=== PATIENT | female | born 1970 | race Caucasian/White ===

== ENCOUNTER 2017-08-24 02:22 | Emergency (ER) | payer OTHER ==
[~2017-08-24] VITALS: Ht 167.6 cm; Wt 59.0 kg
--- NOTE | 2017-08-24 02:30 | NUR ---
To bed 4 a 47 yo female patient bb self and said, "i felt my heart racing." Per patient she woke with her heart racing, denies cp, no sob. AAOx4, nad noted. Breathing even and unlabored. Gowned. Placed cardiac and vs monitor. Comfort measures rendered.
--- NOTE | 2017-08-24 02:49 | NUR ---
Dr Bowie at bedside to eval.
[2017-08-24 03:35] VITALS: BP 123/75
--- NOTE | 2017-08-24 03:35 | NUR ---
Patient discharged to home in stable condition. Written and verbal after care instructions given. Patient verbalizes understanding of instruction. Patient is ambulatory with steady gait, no further complaints.
== END 2017-08-24 03:36 | disposition home or self-care (01) ==
LOC: ER 02:24
DX: F41.9 Anxiety disorder, unspecified (principal); L40.9 Psoriasis, unspecified; E03.9 Hypothyroidism, unspecified; F17.200 Nicotine dependence, unspecified, uncomplicated; Z85.71 Personal history of Hodgkin lymphoma
CPT/HCPCS: 99284; A4606; Z7610

== ENCOUNTER 2018-06-29 02:55 | Emergency (ER) | payer OTHER ==
[~2018-06-29] VITALS: Ht 170.2 cm; Wt 61.7 kg
[2018-06-29 03:02] VITALS: BP 132/91
== END 2018-06-29 03:16 | disposition home or self-care (01) ==
LOC: ER 02:57
DX: F41.9 Anxiety disorder, unspecified (principal); R00.2 Palpitations; E03.9 Hypothyroidism, unspecified; F17.200 Nicotine dependence, unspecified, uncomplicated; Z85.71 Personal history of Hodgkin lymphoma
CPT/HCPCS: 93005; 99283; A4606; Z7610

== ENCOUNTER 2019-06-27 06:13 | Emergency (ER) | payer OTHER ==
[~2019-06-27] VITALS: Ht 165.1 cm; Wt 61.2 kg
--- NOTE | 2019-06-27 06:22 | NUR ---
PT BIBSELF C/O "HAVING CP SINCE LAST NIGHT, WOKE UP WITH HEART RACING. L ARM PAIN X7 DAYS" -SOB AOX4. VSS. AMBULATORY. RESP EVEN AND UNLABOTED. PT ON MONITOR IN BED 9. WILL CONTINUE TO MONITOR.
[2019-06-27] MEDS ORDERED: DIAZEPAM 5 MG TABLET ONE (06:46)
[2019-06-27] MEDS ORDERED: ACETAMINOPHEN ES 500 MG TABLET ONE (06:46)
[2019-06-27] MEDS ORDERED: KETOROLAC TROMETHAMINE 15 MG/ML VIAL ONE (06:46)
--- NOTE | 2019-06-27 06:50 | NUR ---
PHLEB AT BEDSIDE FOR LAB DRAW
[2019-06-27] MEDS ORDERED: ACETAMINOPHEN ES 500 MG TABLET PO ONE (07:00)
[2019-06-27] MEDS ORDERED: KETOROLAC TROMETHAMINE INJ 30 MG/ML VIAL IV ONE (07:00)
[2019-06-27] MEDS ORDERED: DIAZEPAM 10 MG TABLET PO ONE (07:00)
--- NOTE | 2019-06-27 07:04 | NUR ---
PT REFUSED IV. AWARE.
[2019-06-27 07:05] LABS: BASOPHILS # (AUTO) 0.1 /CMM (0.0-0.2); BASOPHILS % (AUTO) 0.8 % (0.0-2.0); EOSINOPHILS % (AUTO) 4.7 % (0.0-6.0); HEMATOCRIT 41 % (33-45); HEMOGLOBIN 14.1 g/dL (11.5-14.8); LYMPHOCYTES # (AUTO) 2.5 /CMM (0.8-4.8); MEAN CORPUSCULAR HGB CONC 34 g/dl (31.0-36.0); MEAN CORPUSCULAR VOLUME 89 fL (82-100); MONOCYTES # (AUTO) 0.7 /CMM (0.1-1.30); MONOCYTES % (AUTO) 9.1 % (2.0-12.0); NEUTROPHILS # (AUTO) 3.8 /CMM (1.8-8.9); NEUTROPHILS % (AUTO) 51.4 % (43.0-81.0); PLATELET COUNT (AUTO) 373 /CMM (150-450); WHITE BLOOD COUNT (AUTO) 7.4 K/uL (4.3-11.0)
--- NOTE | 2019-06-27 07:10 | NUR ---
RECEIVED REPORT FROM NII HUTCHINSON FOR VIVIAN, PT IS AAOX3, NOT IN RESPIRATORY DISTRSS, V/S STABLE, KEPT RESTED AND COMFORTABLE, WILL CONTINUE TO MONITOR.
[2019-06-27 07:11] LABS: CALCIUM, SERUM 9.2 mg/dL (8.5-10.1); CARBON DIOXIDE 26 mmol/L (21-32); CHLORIDE 105 mmol/L (98-107); CREATININE 0.7 mg/dL (0.6-1.3); GLUCOSE 118 mg/dL (74-106); POTASSIUM 4.2 mmol/L (3.5-5.1); SODIUM SERUM 140 mmol/L (136-145); UREA NITROGEN, BLOOD 15 mg/dL (7-18)
--- NOTE | 2019-06-27 07:15 | NUR ---
PT WHEELED TO CT SCAN VIA [employer].
[2019-06-27] MEDS ORDERED: IBUPROFEN 600 MG TABLET PO ONE ×2 (07:30→07:38)
[2019-06-27 08:52] VITALS: BP 125/81
--- NOTE | 2019-06-27 08:52 | NUR ---
Patient discharged to home in stable condition. Written and verbal after care instructions given. Patient verbalizes understanding of instruction.
== END 2019-06-27 08:54 | disposition home or self-care (01) ==
LOC: ER 06:15
DX: R07.89 Other chest pain (principal); F41.9 Anxiety disorder, unspecified; M54.12 Radiculopathy, cervical region; C81.90 Hodgkin lymphoma, unspecified, unspecified site; L40.9 Psoriasis, unspecified; E03.9 Hypothyroidism, unspecified; F17.200 Nicotine dependence, unspecified, uncomplicated; Z60.2 Problems related to living alone
CPT/HCPCS: 36415; 71045-TC; 72125-TC; 80048-TC; 84484-TC; 85025-TC; J1885

== ENCOUNTER 2019-08-11 04:19 | Emergency (ER) | payer OTHER ==
[~2019-08-11] VITALS: Ht 167.6 cm; Wt 56.7 kg
--- NOTE | 2019-08-11 04:26 | NUR ---
PT BIB SELF C/O ANXIETY FOR 2 DAYS "I FELT MY HEART IS RACING" PT IS AAOX4, NOT IN RESPIRATORY DISTRESS, HOOKED TO MONITOR, KEPT RESTED AND COMFORTABLE, WILL CONITNUE TO MONITOR.
--- NOTE | 2019-08-11 04:41 | NUR ---
AT BEDSIDE FOR EVAL.
[2019-08-11] MEDS ORDERED: LORAZEPAM 1 MG TABLET ONE (04:52)
--- NOTE | 2019-08-11 04:56 | NUR ---
ER PHLEB AT BEDSIDE FOR BLOOD DRAW.
[2019-08-11] MEDS ORDERED: LORAZEPAM 1 MG TABLET PO ONE (05:00)
[2019-08-11 05:07] LABS: BASOPHILS # (AUTO) 0.1 /CMM (0.0-0.2); BASOPHILS % (AUTO) 0.7 % (0.0-2.0); EOSINOPHILS % (AUTO) 3.3 % (0.0-6.0); HEMATOCRIT 44 % (33-45); LYMPHOCYTES # (AUTO) 2.3 /CMM (0.8-4.8); LYMPHOCYTES % (AUTO) 33.7 % (20.0-44.0); MEAN CORPUSCULAR HGB CONC 34 g/dl (31.0-36.0); MEAN CORPUSCULAR VOLUME 90 fL (82-100); MONOCYTES # (AUTO) 0.6 /CMM (0.1-1.30); MONOCYTES % (AUTO) 8.7 % (2.0-12.0); NEUTROPHILS # (AUTO) 3.6 /CMM (1.8-8.9); NEUTROPHILS % (AUTO) 53.6 % (43.0-81.0); PLATELET COUNT (AUTO) 397 /CMM (150-450); RED BLOOD CELL COUNT(AUTO) 4.89 MIL/uL (4.0-5.2); WHITE BLOOD COUNT (AUTO) 6.8 K/uL (4.3-11.0)
[2019-08-11 05:17] LABS: CALCIUM, SERUM 9.2 mg/dL (8.5-10.1); CARBON DIOXIDE 27 mmol/L (21-32); CHLORIDE 102 mmol/L (98-107); CREATININE 0.8 mg/dL (0.6-1.3); GLUCOSE 107 mg/dL (74-106); POTASSIUM 3.8 mmol/L (3.5-5.1); SODIUM SERUM 137 mmol/L (136-145); UREA NITROGEN, BLOOD 15 mg/dL (7-18)
[2019-08-11 05:34] LABS: THYROID STIMULATING HORMONE 8.691 uIU/mL (0.358-3.74)
[2019-08-11 06:21] VITALS: BP 129/85
--- NOTE | 2019-08-11 06:21 | NUR ---
Patient discharged to home in stable condition. Written and verbal after care instructions given. Patient verbalizes understanding of instruction.
== END 2019-08-11 07:01 | disposition home or self-care (01) ==
LOC: ER 04:21
DX: F41.9 Anxiety disorder, unspecified (principal); E03.9 Hypothyroidism, unspecified; F17.200 Nicotine dependence, unspecified, uncomplicated; Z60.2 Problems related to living alone; Z91.19 Patient's noncompliance with other medical treatment and regimen; Z85.71 Personal history of Hodgkin lymphoma
CPT/HCPCS: 36415; 80048-TC; 84439-TC; 84443-TC; 84484-TC; 85025-TC

== ENCOUNTER 2019-08-15 12:41 | Emergency (ER) | payer OTHER ==
[~2019-08-15] VITALS: Ht 170.2 cm; Wt 65.8 kg
--- NOTE | 2019-08-15 12:59 | NUR ---
PT CAME IN W/ C/O OF CHEST PAIN. PT DENIES PAIN RADIATING TO OTHER PARTS OF THE BODY. CONNECTED TO MONITOR. AAOX4. NO SOB. BREATHING EVEN AND UNLABORED. WILL CONTINUE TO MONITOR.
--- NOTE | 2019-08-15 13:36 | NUR ---
PT. VERBALIZED UNDERSTANDING OF AFTERCARE INSTRUCTIONS.Patient discharged to home in stable condition. Written and verbal after care instructions given. Patient verbalizes understanding of instruction.
[2019-08-15 13:46] VITALS: BP 112/68
== END 2019-08-15 13:47 | disposition home or self-care (01) ==
LOC: ER 12:45
DX: F41.9 Anxiety disorder, unspecified (principal); R00.2 Palpitations; E03.9 Hypothyroidism, unspecified; F17.200 Nicotine dependence, unspecified, uncomplicated; Z85.71 Personal history of Hodgkin lymphoma; Z60.2 Problems related to living alone

== ENCOUNTER 2020-04-08 22:50 | Emergency (ER) | payer OTHER ==
[~2020-04-08] VITALS: Ht 170.2 cm; Wt 65.8 kg
--- NOTE | 2020-04-08 22:58 | NUR ---
DR CHANEY AT BEDSIDE
--- NOTE | 2020-04-08 23:00 | NUR ---
PATIENT CAME TO ER BED 9 C/O ANXIETY ATTACK SINCE AN HOUR TELEPHONER. PATIENT STATES, "I FEEL LIKE MY CHEST IS REALLY TIGHT, I DON'T KNOW WHY I AM CRYING." PATIENT ADMITS TO DRINKING A LITTLE ALCOHOL. PATIENT STATES THAT SHE TOOK 5MG OF VALIUM. AAOX4. NO SOB. CURRENTLY BREATHING EVENLY AND UNLABORED ON ROOM AIR. CONNECTED TO THE [employer].
[2020-04-08] MEDS ORDERED: LORAZEPAM INJ 2 MG/ML VIAL ONE (23:11)
[2020-04-08 23:25] LABS: BASOPHILS % (AUTO) 0.4 % (0.0-2.0); EOSINOPHILS % (AUTO) 1.9 % (0.0-6.0); HEMATOCRIT 46 % (33-45); HEMOGLOBIN 15.6 g/dL (11.5-14.8); LYMPHOCYTES # (AUTO) 1.7 /CMM (0.8-4.8); LYMPHOCYTES % (AUTO) 20.7 % (20.0-44.0); MEAN CORPUSCULAR HGB CONC 34 g/dl (31.0-36.0); MEAN CORPUSCULAR VOLUME 89 fL (82-100); MONOCYTES # (AUTO) 0.9 /CMM (0.1-1.30); MONOCYTES % (AUTO) 10.7 % (2.0-12.0); NEUTROPHILS # (AUTO) 5.4 /CMM (1.8-8.9); NEUTROPHILS % (AUTO) 66.3 % (43.0-81.0); PLATELET COUNT (AUTO) 405 /CMM (150-450); RED BLOOD CELL COUNT(AUTO) 5.13 MIL/uL (4.0-5.2); WHITE BLOOD COUNT (AUTO) 8.1 K/uL (4.3-11.0)
[2020-04-08] MEDS ORDERED: LORAZEPAM INJ 2 MG/ML VIAL IV ONE (23:30)
[2020-04-08] MEDS ORDERED: IV NS 0.9% 1,000 ML BAG IV ONE (23:30)
[2020-04-08 23:32] LABS: CALCIUM, SERUM 9.6 mg/dL (8.5-10.1); CREATININE 0.9 mg/dL (0.6-1.3)
[2020-04-09 01:10] VITALS: BP 129/78
== END 2020-04-09 01:11 | disposition home or self-care (01) ==
LOC: ER 22:52
DX: F41.9 Anxiety disorder, unspecified (principal); E03.9 Hypothyroidism, unspecified; F17.200 Nicotine dependence, unspecified, uncomplicated; R94.31 Abnormal electrocardiogram [ECG] [EKG]; Z60.2 Problems related to living alone
CPT/HCPCS: 36415; 80048; 85025; 93005; 96374; 99284; J2060; J7030

== ENCOUNTER 2022-01-20 09:18 | Emergency (ER) | payer OTHER ==
[~2022-01-20] VITALS: Ht 170.2 cm; Wt 68.5 kg
[2022-01-20] MEDS ORDERED: ONDANSETRON HCL/PF 4 MG/2 ML VIAL ONE (09:23)
--- NOTE | 2022-01-20 09:24 | NUR ---
BIB FAMILY C/O HEADACHE, DIZZINESS AND VOMITING STARTED YESTERDAY "ITS LIKE THE ROOM IS SPINNING." PT BLOOD PRESSURE ELEVATED, MD AWARE. PT VOMITTED UPON ARRIVAL. ATTACHED TO MONITOR, PROVIDED WARM BLANKET. WILL CONTINUE TO MONITOR.
--- NOTE | 2022-01-20 09:31 | NUR ---
IV ESTABLISHED L WRIST 22G. LABS DRAWN AND COLLECTED. CONVERTED TO SALINE LOCK.
[2022-01-20] MEDS: ONDANSETRON HCL/PF 4 MG/2 ML VIAL IV ONE (09:53)
[2022-01-20 10:13] LABS: BASOPHILS # (AUTO) 0.1 K/uL (0.0-0.2); BASOPHILS % (AUTO) 0.5 % (0.0-2.0); EOSINOPHILS % (AUTO) 2.7 % (0.0-6.0); HEMATOCRIT 43 % (33-45); HEMOGLOBIN 14.4 g/dL (11.5-14.8); LYMPHOCYTES # (AUTO) 2.7 K/uL (0.8-4.8); LYMPHOCYTES % (AUTO) 26.2 % (20.0-44.0); MEAN CORPUSCULAR HGB CONC 34 g/dl (31.0-36.0); MEAN CORPUSCULAR VOLUME 89 fL (82-100); MONOCYTES % (AUTO) 9.6 % (2.0-12.0); NEUTROPHILS # (AUTO) 6.2 K/uL (1.8-8.9); PLATELET COUNT (AUTO) 401 K/uL (150-450); RED BLOOD CELL COUNT(AUTO) 4.83 MIL/uL (4.0-5.2); WHITE BLOOD COUNT (AUTO) 10.1 K/uL (4.3-11.0)
--- NOTE | 2022-01-20 10:27 | NUR ---
PT RETURNED FROM CT VIA [facility]
[2022-01-20] MEDS ORDERED: MECLIZINE HCL 25 MG TABLET ONE (10:28)
[2022-01-20] MEDS ORDERED: METOCLOPRAMIDE HCL 10 MG/2 ML VIAL ONE (10:29)
[2022-01-20] MEDS: IV NS 0.9% 1,000 ML IV ONE (10:35)
[2022-01-20] MEDS: MECLIZINE HCL 12.5 MG TABLET PO ONE (10:35)
[2022-01-20] MEDS: METOCLOPRAMIDE HCL 10 MG/2 ML VIAL IV ONE (10:36)
[2022-01-20 10:38] LABS: BILIRUBIN,TOTAL 0.2 mg/dL (0.2-1.0); CALCIUM, SERUM 9.2 mg/dL (8.5-10.1); CREATININE 0.6 mg/dL (0.6-1.3); POTASSIUM 3.5 mmol/L (3.5-5.1); TOTAL PROTEIN, SERUM 7.3 g/dL (6.4-8.2)
[2022-01-20] MEDS ORDERED: ONDA4TAB11 PO (11:51)
[2022-01-20] MEDS ORDERED: MECL-159 PO (11:51)
--- NOTE | 2022-01-20 12:08 | NUR ---
Patient discharged to home in stable condition. Written and verbal after care instructions given. Patient verbalizes understanding of instruction.IV removed. Catheter intact and site benign. Pressure and 4x4 applied to site. No bleeding noted.
[2022-01-20 12:10] VITALS: BP 167/91
== END 2022-01-20 12:10 | disposition home or self-care (01) ==
LOC: ER 09:22
DX: R42 Dizziness and giddiness (principal); R11.2 Nausea with vomiting, unspecified; F41.9 Anxiety disorder, unspecified; E03.9 Hypothyroidism, unspecified; F17.200 Nicotine dependence, unspecified, uncomplicated; Z85.71 Personal history of Hodgkin lymphoma; Z87.2 Personal history of diseases of the skin and subcutaneous tissue; Z60.2 Problems related to living alone; Z79.899 Other long term (current) drug therapy
CPT/HCPCS: 36415; 70450; 80053; 85025; 96361; 96374; 99284; J2405; J7030; J8597; J2765